=== PATIENT | female | born 1960 | race Caucasian/White ===

== ENCOUNTER → 2018-06-17 | Outpatient (CLI) | payer OTHER ==
[~2018-06-17] MED LIST: ATOR-24 PO; CALC500C70 PO; DULO60CA44 PO; MAGN250T8 PO; MULT-506 PO; OMEP-334 PO; POTA99TA PO; QUET1TAB91 PO; RIVA1TAB4 PO; TOPI100T20 PO; TOPI200T14 PO
--- NOTE | 2018-06-17 13:58 | DIAGNOSTIC IMAGING REPORT ---
CHEST 2 VIEWS ROUTINE CLINICAL HISTORY: Preoperative chest COMPARISON STUDY: No previous studies for comparison. FINDINGS: The heart is normal in size. There is a retrocardiac opacity consistent with a hiatal hernia. There is tenting of the right hemidiaphragm. There is right middle lobe scarring. There is no evidence of pneumonia. There is no evidence of failure. No pleural effusions are visualized.[ IMPRESSION: No active disease in the chest. Electronically signed by: Caleb Avila M.D. 06/17/2018 1:56 PM Dictated Date/Time: 06/17/2018 1:56 PM
[2018-06-17 14:50] LABS: BASO % 0.3 %; BASO ABS # 0.02 K/uL (0-0.2); EOS % 1.4 %; EOS ABS # 0.09 K/uL (0-0.5); HEMATOCRIT 40.1 % (37-47); HEMOGLOBIN 13.5 g/dL (12.0-16.0); IG# 0.02 K/uL (0.00-0.02); LYMPH % 34.4 %; LYMPH ABS # 2.16 K/uL (1.2-3.4); MEAN CELL VOLUME 83.2 fL (80-100); MEAN CORPUSCULAR HGB CONC 33.7 g/dl (32-36); MEAN PLATELET VOLUME 11.3 fL (7.4-10.4); MONO % 8.8 %; MONO ABS # 0.55 K/uL (0.11-0.59); NEUT % 54.8 %; NEUT ABS # 3.43 K/uL (1.4-6.5); PLATELET COUNT 255 K/uL (130-400); RED CELL DISTRIBUTION WIDTH SD 45.6 fL (36.4-46.3); WHITE BLOOD COUNT 6.27 K/uL (4.8-10.8)
[2018-06-17 14:58] LABS: HEMOGLOBIN A1C 5.2 % (4.5-5.6)
[2018-06-17 15:05] LABS: INR 1.1 (0.9-1.1); PTT PATIENT 32.9 SECONDS (21.0-31.0)
[2018-06-17 15:36] LABS: BLOOD UREA NITROGEN 7 mg/dl (7-18); CALCIUM 9.1 mg/dl (8.5-10.1); CARBON DIOXIDE 17 mmol/L (21-32); CREATININE 0.75 mg/dl (0.60-1.20); GLUCOSE 78 mg/dl (70-99); POTASSIUM 3.8 mmol/L (3.5-5.1); SODIUM 136 mmol/L (136-145)
== END | disposition home or self-care (01) ==
LOC: C.CPL 12:54
PROVIDERS: ATTEND Orthopaedic Surgery
DX: Z01.818 Encounter for other preprocedural examination (principal)